=== PATIENT | male | born 1935 | race Caucasian/White ===

== ENCOUNTER 2017-10-06 12:04 | Inpatient (IN) | payer MEDICARE, MEDICAID ==
[~2017-10-06] VITALS: Ht 177.8 cm; Wt 93.8 kg
[2017-10-06] MEDS ORDERED: SODIUM CHLORIDE FLUSH 10ML SYR IVF ONE (13:30)
[2017-10-06 14:04] LABS: BASOPHILS # (AUTO) 0.05 x10^3/uL (0-0.1); BASOPHILS % (AUTO) 0 % (0-1); EOSINOPHILS # (AUTO) 0.36 x10^3/uL (0-0.4); EOSINOPHILS % (AUTO) 3 % (1-7); LYMPHOCYTES # (AUTO) 3.43 x10^3/uL (1-3.4); LYMPHOCYTES % (AUTO) 25 % (22-44); MD NO; MEAN CORPUSCULAR HEMOGLOBIN 31.7 pg (27.5-34.5); MEAN CORPUSCULAR HGB CONC 33.6 g/dL (33.2-36.2); MEAN CORPUSCULAR VOLUME 94.4 fL (81-97); MEAN PLATELET VOLUME 8.2 fL (7.4-10.4); MONOCYTES # (AUTO) 1.14 x10^3/uL (0.2-0.8); MONOCYTES % (AUTO) 9 % (2-9); NEUTROPHILS # (AUTO) 8.53 x10^3/uL (1.8-6.8); NEUTROPHILS % (AUTO) 63 % (42-75); PLATELET COUNT 240 x10^3/uL (130-400); RED BLOOD COUNT 5.14 x10^6/uL (4.38-5.82); RED CELL DISTRIBUTION WIDTH 13.7 % (9.4-14.8)
[2017-10-06 14:15] LABS: ALANINE AMINOTRANSFERASE 29 U/L (12-78); ALBUMIN 3.7 g/dL (3.4-5.0); ANION GAP 7 mmol/L (5-15); CALCIUM 9.3 mg/dL (8.5-10.1); CHLORIDE 114 mmol/L (98-107); CREATININE 1.97 mg/dL (0.7-1.3)
[2017-10-06 14:20] LABS: ALKALINE PHOSPHATASE 79 U/L (45-117); BILIRUBIN,TOTAL 0.4 mg/dL (0.2-1.0); TOTAL PROTEIN 7.7 g/dL (6.4-8.2)
[2017-10-06] MEDS ORDERED: ASPIRIN 81 MG TABLET CHEW ONE (14:34)
[2017-10-06] MEDS ORDERED: HEPARIN 5,000 UNITS/ML, 1ML ONE (14:35)
[2017-10-06] MEDS ORDERED: HEPARIN 25,000 UNITS/500ML PMX 500 ML ONE (14:35)
[2017-10-06] MEDS ORDERED: NITROGLYCERIN SINGLE TAB 0.4 MG SL ONE (14:37)
[2017-10-06] MEDS ORDERED: HEPARIN 5,000 UNITS/ML, 1ML IV ONE (15:00)
[2017-10-06] MEDS ORDERED: ASPIRIN 81 MG TABLET CHEW PO ONE (15:00)
[2017-10-06] MEDS ORDERED: HEPARIN 25,000 UNITS/500ML PMX 500 ML IV PRN (15:00)
[2017-10-06] MEDS ORDERED: HEPARIN 5,000 UNITS/ML, 1ML IV PRN (15:00)
[2017-10-06] MEDS ORDERED: FENTANYL PF 100 MCG/2ML ONE ×2 (15:17→16:07)
[2017-10-06] MEDS ORDERED: VERAPAMIL 2.5 MG/ML, 2ML ONE (15:18)
[2017-10-06] MEDS ORDERED: MIDAZOLAM 1 MG/ML, 2ML ONE ×2 (15:18→16:02)
[2017-10-06] MEDS ORDERED: BIVALIRUDIN 250 MG ONE ×2 (15:18→16:43)
[2017-10-06] MEDS ORDERED: HEPARIN 1,000 UNITS/ML, 10ML ONE (15:18)
[2017-10-06] MEDS ORDERED: LIDOCAINE 2%, 20ML ONE (15:18)
[2017-10-06] MEDS ORDERED: PRASUGREL 10 MG TABLET ONE (15:22)
[2017-10-06] MEDS ORDERED: LISI-170 PO (15:24)
[2017-10-06] MEDS ORDERED: FOLI1TAB5 PO (15:24)
[2017-10-06] MEDS ORDERED: ASPI-515 PO (15:24)
[2017-10-06] MEDS ORDERED: LABETALOL 5MG/ML, 20ML ONE (15:52)
[2017-10-06] MEDS ORDERED: ONDANSETRON 2MG/ML, 2ML IVPush PRN (16:00)
[2017-10-06] MEDS ORDERED: BISACODYL 10 MG SUPP PR PRN (16:00)
[2017-10-06] MEDS ORDERED: morphine SULFATE 10 MG/ML, 1ML IVPush PRN (16:00)
[2017-10-06] MEDS ORDERED: ACETAMINOPHEN 325 MG TABLET PO PRN (16:00)
[2017-10-06] MEDS ORDERED: NITROGLYCERIN 0.4 MG/SPRAY SL PRN (16:00)
[2017-10-06] MEDS ORDERED: HYDROcodone/APAP 5/325 TABLET PO PRN (16:00)
[2017-10-06] MEDS ORDERED: NITROGLYCERIN 0.4 MG BOTTLE (25 TABS) SL PRN (16:00)
[2017-10-06 16:17] LABS: INTERNATIONAL NORMALIZED RATIO 1.02 (0.93-1.1); PROTHROMBIN TIME 10.6 Seconds (9.6-11.5)
[2017-10-06] MEDS ORDERED: TICAGRELOR 90 MG TABLET ONE (16:18)
[2017-10-06] MEDS ORDERED: SODIUM CHLORIDE 0.9% 1,000 ML IV SCH (16:20)
[2017-10-06] MEDS ORDERED: BIVALIRUDIN 250 MG in DEXTROSE 5% 50 ML IV SCH (16:20)
[2017-10-06] MEDS ORDERED: LABETALOL 5MG/ML, 20ML IVPush PRN (16:30)
[2017-10-06 16:51] VITALS: BP 94/53
[2017-10-06] MEDS ORDERED: ASPIRIN 300 MG SUPP PR ONE (17:00)
[2017-10-06] MEDS ORDERED: ASPIRIN 81 MG TABLET EC PO ONE (18:00)
[2017-10-06] MEDS: METOPROLOL TARTRATE 25 MG TABLET PO SCH (18:24)
[2017-10-06 18:58] LABS: CHOL/HDL RATIO 3.7; LDL/HDL RATIO 2.3 (0.5-3.0)
[2017-10-06] MEDS: TICAGRELOR 90 MG TABLET PO SCH (20:20)
[2017-10-06] MEDS: ATORVASTATIN 80 MG TABLET PO SCH (20:20)
[2017-10-07 04:00] VITALS: BP 129/60
[2017-10-07 04:26] LABS: ALBUMIN 2.9 g/dL (3.4-5.0); ANION GAP 7 mmol/L (5-15); CALCIUM 8.4 mg/dL (8.5-10.1); CHLORIDE 116 mmol/L (98-107); CREATININE 1.88 mg/dL (0.7-1.3)
[2017-10-07] MEDS ORDERED: ALBUTEROL/IPRATROPIUM 2.5MG/0.5MG, 3 ML ONE (06:30)
[2017-10-07] MEDS: METOPROLOL TARTRATE 25 MG TABLET PO SCH ×3 (06:32→17:12)
[2017-10-07] MEDS: TICAGRELOR 90 MG TABLET PO SCH ×2 (08:44→21:15)
[2017-10-07 20:01] VITALS: BP 152/78
[2017-10-07] MEDS: ATORVASTATIN 80 MG TABLET PO SCH (21:15)
[2017-10-08] MEDS: ZOLPIDEM 5MG TABLET PO PRN ×2 (02:04→19:49)
[2017-10-08 02:07] VITALS: BP 193/71
[2017-10-08 07:17] LABS: BASOPHILS # (AUTO) 0.04 x10^3/uL (0-0.1); BASOPHILS % (AUTO) 0 % (0-1); EOSINOPHILS # (AUTO) 0.34 x10^3/uL (0-0.4); EOSINOPHILS % (AUTO) 3 % (1-7); LYMPHOCYTES # (AUTO) 1.93 x10^3/uL (1-3.4); LYMPHOCYTES % (AUTO) 18 % (22-44); MD NO; MEAN CORPUSCULAR HEMOGLOBIN 31.9 pg (27.5-34.5); MEAN CORPUSCULAR HGB CONC 33.8 g/dL (33.2-36.2); MEAN CORPUSCULAR VOLUME 94.5 fL (81-97); MEAN PLATELET VOLUME 8.1 fL (7.4-10.4); MONOCYTES # (AUTO) 1.04 x10^3/uL (0.2-0.8); MONOCYTES % (AUTO) 10 % (2-9); NEUTROPHILS # (AUTO) 7.32 x10^3/uL (1.8-6.8); NEUTROPHILS % (AUTO) 69 % (42-75); PLATELET COUNT 195 x10^3/uL (130-400); RED BLOOD COUNT 4.31 x10^6/uL (4.38-5.82); RED CELL DISTRIBUTION WIDTH 13.6 % (9.4-14.8)
[2017-10-08 07:28] LABS: ANION GAP 8 mmol/L (5-15); CALCIUM 9.1 mg/dL (8.5-10.1); CHLORIDE 113 mmol/L (98-107)
[2017-10-08 07:29] LABS: CREATININE 1.74 mg/dL (0.7-1.3)
[2017-10-08 07:46] VITALS: BP 168/63
[2017-10-08] MEDS: TICAGRELOR 90 MG TABLET PO SCH ×2 (09:39→19:49)
[2017-10-08] MEDS: METOPROLOL TARTRATE 25 MG TABLET PO SCH ×2 (09:40→18:01)
[2017-10-08 09:42] VITALS: BP 150/79
[2017-10-08] MEDS: ASPIRIN 325 MG TABLET PO SCH (10:51)
[2017-10-08] MEDS: LISINOPRIL 5 MG TABLET PO SCH (10:51)
[2017-10-08 14:19] VITALS: BP 168/71
[2017-10-08] MEDS: ATORVASTATIN 80 MG TABLET PO SCH (19:49)
[2017-10-08 19:50] VITALS: BP 155/82
[2017-10-09] MEDS ORDERED: HYDROcodone/APAP 5/325 TABLET PO PRN (02:30)
[2017-10-09 04:06] VITALS: BP 140/73
[2017-10-09] MEDS: METOPROLOL TARTRATE 25 MG TABLET PO SCH (05:26)
[2017-10-09] MEDS: ASPIRIN 325 MG TABLET PO SCH (05:26)
[2017-10-09 06:05] LABS: ANION GAP 10 mmol/L (5-15); CALCIUM 8.8 mg/dL (8.5-10.1); CHLORIDE 113 mmol/L (98-107); CREATININE 1.99 mg/dL (0.7-1.3)
[2017-10-09] MEDS ORDERED: ATOR-2 PO (08:04)
[2017-10-09] MEDS ORDERED: TICA90TA PO (08:04)
[2017-10-09] MEDS ORDERED: NITR0.4T SL (08:04)
[2017-10-09] MEDS ORDERED: METO25TA35 PO (08:04)
[2017-10-09 08:06] VITALS: BP 181/76
[2017-10-09] MEDS: TICAGRELOR 90 MG TABLET PO SCH (08:45)
[2017-10-09] MEDS: LISINOPRIL 5 MG TABLET PO SCH (08:45)
== END 2017-10-09 09:00 | disposition home or self-care (01) | DRG 248 ==
LOC: ED 16:31 → CCU 16:40 → 5SO 10-07 13:00
PROVIDERS: ADMIT Family Medicine; ATTEND Family Medicine
PROC: 02723FZ Dilation of Coronary Artery, Three Arteries with Three Intraluminal Devices, Percutaneous Approach (ICD-10-PCS; principal; 2017-10-06)
PROC: 4A023N7 Measurement of Cardiac Sampling and Pressure, Left Heart, Percutaneous Approach (ICD-10-PCS; 2017-10-06)
PROC: B2111ZZ Fluoroscopy of Multiple Coronary Arteries using Low Osmolar Contrast (ICD-10-PCS; 2017-10-06)
PROC: B2151ZZ Fluoroscopy of Left Heart using Low Osmolar Contrast (ICD-10-PCS; 2017-10-06)
DX: I21.09 ST elevation (STEMI) myocardial infarction involving other coronary artery of anterior wall (principal); N17.0 Acute kidney failure with tubular necrosis; D64.9 Anemia, unspecified; E78.5 Hyperlipidemia, unspecified; F17.210 Nicotine dependence, cigarettes, uncomplicated; I10 Essential (primary) hypertension; I25.10 Atherosclerotic heart disease of native coronary artery without angina pectoris; N28.9 Disorder of kidney and ureter, unspecified; Z91.19 Patient's noncompliance with other medical treatment and regimen
CPT/HCPCS: 36415; 71045; 80048; 80053; 80061; 82040; 84484; 85014; 85018; 85025; 85520; 85610; 87081; 92928; 93005; 93306; 93458; 96365; 96376; 99156; 99157; C1769; C1876; C1894; J0583; J1644; J2250; J3010; J3490; C1725; C1887; J2270; J7030; Q9967

== ENCOUNTER → 2017-11-06 | Outpatient (CLI) | payer MEDICARE, MEDICAID ==
[~2017-11-06] MED LIST: ASPI-515 PO; ATOR-2 PO; FOLI1TAB5 PO; LISI-170 PO; METO25TA35 PO; NITR0.4T SL; TICA90TA PO
[2017-11-06 12:51] LABS: ALBUMIN 3.5 g/dL (3.4-5.0); ANION GAP 7 mmol/L (5-15); CALCIUM 9.5 mg/dL (8.5-10.1); CHLORIDE 113 mmol/L (98-107)
[2017-11-06 12:55] LABS: ALANINE AMINOTRANSFERASE 37 U/L (12-78); ALKALINE PHOSPHATASE 87 U/L (45-117); BILIRUBIN,TOTAL 0.4 mg/dL (0.2-1.0); CHOLESTEROL, TOTAL 87 mg/dL (140-239); CREATININE 2.01 mg/dL (0.7-1.3); HDL CHOL % 51 % (26-37); HDL CHOLESTEROL (DIRECT) 44 mg/dL (40-60); LDL CHOLESTEROL,CALCULATED 23 mg/dL (54-169); LDL/HDL RATIO 0.5 (0.5-3.0); TRIGLYCERIDES 98 mg/dL (50-200); VLDL CHOLESTEROL 20 mg/dL (0-25)
== END | disposition home or self-care (01) ==
LOC: CFH 09:22
PROVIDERS: ATTEND Internal Medicine Cardiovascular Disease
DX: E78.2 Mixed hyperlipidemia (principal); N18.9 Chronic kidney disease, unspecified
CPT/HCPCS: 36415; 80053; 80061

== ENCOUNTER → 2018-02-25 | Outpatient (CLI) | payer MEDICARE, MEDICAID ==
[~2018-02-25] MED LIST changes: +REGADENOSON 0.4 MG/5 ML SYRINGE ONE
== END | disposition home or self-care (01) ==
LOC: CFH 11:56
PROVIDERS: ATTEND Internal Medicine Cardiovascular Disease
DX: I25.89 Other forms of chronic ischemic heart disease (principal); I25.10 Atherosclerotic heart disease of native coronary artery without angina pectoris
CPT/HCPCS: 78452; 93017; A9502; J2785

== ENCOUNTER 2018-03-11 10:21 | Observation (INO) | payer MEDICARE, MEDICAID ==
[2018-03-10 14:20] LABS: BASOPHILS # (AUTO) 0.05 x10^3/uL (0-0.1); BASOPHILS % (AUTO) 1 % (0-1); EOSINOPHILS # (AUTO) 0.57 x10^3/uL (0-0.4); EOSINOPHILS % (AUTO) 6 % (1-7); LYMPHOCYTES # (AUTO) 1.57 x10^3/uL (1-3.4); LYMPHOCYTES % (AUTO) 17 % (22-44); MD NO; MEAN CORPUSCULAR HEMOGLOBIN 32.1 pg (27.5-34.5); MEAN CORPUSCULAR HGB CONC 33.4 g/dL (33.2-36.2); MEAN CORPUSCULAR VOLUME 96.1 fL (81-97); MONOCYTES # (AUTO) 0.75 x10^3/uL (0.2-0.8); MONOCYTES % (AUTO) 8 % (2-9); NEUTROPHILS # (AUTO) 6.38 x10^3/uL (1.8-6.8); NEUTROPHILS % (AUTO) 69 % (42-75); PLATELET COUNT 244 x10^3/uL (130-400); RED BLOOD COUNT 3.28 x10^6/uL (4.38-5.82); RED CELL DISTRIBUTION WIDTH 14.8 % (9.4-14.8)
[2018-03-10 14:33] LABS: ANION GAP 6 mmol/L (5-15); CALCIUM 8.6 mg/dL (8.5-10.1); CHLORIDE 114 mmol/L (98-107); CREATININE 1.69 mg/dL (0.7-1.3)
[~2018-03-11] VITALS: Ht 177.8 cm; Wt 85.4 kg
[~2018-03-11 10:21] MED LIST changes: +AMLO5TAB2 PO; +ATOR40TA PO; +LISI5TAB7 PO; +METO25TA91 PO; -REGADENOSON 0.4 MG/5 ML SYRINGE ONE
[2018-03-11] MEDS ORDERED: SODIUM BICARBONATE 8.4% 50 MEQ in DEXTROSE 5% 1,000 ML IV SCH (12:00)
[2018-03-11] MEDS ORDERED: MIDAZOLAM 1 MG/ML, 2ML ONE (13:11)
[2018-03-11] MEDS ORDERED: BIVALIRUDIN 250 MG ONE (13:12)
[2018-03-11] MEDS ORDERED: LIDOCAINE 2%, 2ML ONE (13:12)
[2018-03-11] MEDS ORDERED: DIPHENHYDRAMINE 50 MG/ML, 1ML ONE (13:12)
[2018-03-11] MEDS ORDERED: HEPARIN 1,000 UNITS/ML, 10ML ONE (13:12)
[2018-03-11] MEDS ORDERED: FENTANYL PF 100 MCG/2ML ONE (13:12)
[2018-03-11] MEDS ORDERED: VERAPAMIL 2.5 MG/ML, 2ML ONE (13:26)
[2018-03-11] MEDS ORDERED: LABETALOL 5MG/ML, 20ML ONE (13:48)
[2018-03-11] MEDS ORDERED: BIVALIRUDIN 250 MG in DEXTROSE 5% 50 ML IV SCH (14:21)
[2018-03-11] MEDS ORDERED: ASPIRIN 325 MG TABLET EC ONE (14:22)
[2018-03-11] MEDS ORDERED: ONDANSETRON 2MG/ML, 2ML IVPush PRN (14:30)
[2018-03-11] MEDS ORDERED: ZOLPIDEM 5MG TABLET PO PRN (14:30)
[2018-03-11] MEDS ORDERED: LABETALOL 5MG/ML, 20ML IVPush PRN (14:30)
[2018-03-11] MEDS ORDERED: ACETAMINOPHEN 325 MG TABLET PO PRN (14:30)
[2018-03-11 17:16] VITALS: BP 138/83
[2018-03-11] MEDS: SODIUM CHLORIDE 0.9% 1,000 ML IV SCH ×2 (18:02→22:21)
[2018-03-11 20:00] VITALS: BP 102/58
[2018-03-11] MEDS: TICAGRELOR 90 MG TABLET PO SCH (20:38)
[2018-03-12 02:00] VITALS: BP 137/72
[2018-03-12 05:36] LABS: ANION GAP 10 mmol/L (5-15); CALCIUM 8.5 mg/dL (8.5-10.1); CHLORIDE 115 mmol/L (98-107); CREATININE 1.94 mg/dL (0.7-1.3)
[2018-03-12 05:38] LABS: BASOPHILS # (AUTO) 0.05 x10^3/uL (0-0.1); BASOPHILS % (AUTO) 1 % (0-1); EOSINOPHILS # (AUTO) 0.57 x10^3/uL (0-0.4); EOSINOPHILS % (AUTO) 6 % (1-7); LYMPHOCYTES # (AUTO) 1.85 x10^3/uL (1-3.4); LYMPHOCYTES % (AUTO) 18 % (22-44); MD NO; MEAN CORPUSCULAR HGB CONC 33.1 g/dL (33.2-36.2); MEAN CORPUSCULAR VOLUME 96.6 fL (81-97); MEAN PLATELET VOLUME 8.2 fL (7.4-10.4); MONOCYTES # (AUTO) 0.95 x10^3/uL (0.2-0.8); MONOCYTES % (AUTO) 10 % (2-9); NEUTROPHILS # (AUTO) 6.61 x10^3/uL (1.8-6.8); NEUTROPHILS % (AUTO) 66 % (42-75); PLATELET COUNT 221 x10^3/uL (130-400); RED CELL DISTRIBUTION WIDTH 14.8 % (9.4-14.8)
[2018-03-12] MEDS: SODIUM CHLORIDE 0.9% 1,000 ML IV SCH (06:21)
[2018-03-12 07:10] VITALS: BP 152/65
[2018-03-12] MEDS: TICAGRELOR 90 MG TABLET PO SCH (08:48)
[2018-03-12] MEDS ORDERED: AMLODIPINE 5 MG TABLET PO ONE (10:00)
[2018-03-12] MEDS ORDERED: METOPROLOL TARTRATE 25 MG TABLET PO SCH (10:00)
[2018-03-12] MEDS ORDERED: ASPIRIN 81 MG TABLET EC PO SCH (10:00)
[2018-03-12] MEDS ORDERED: LISINOPRIL 5 MG TABLET PO SCH (10:00)
== END 2018-03-12 11:37 | disposition home or self-care (01) ==
LOC: CACL 10:21 → ORIP 14:21 → 5SO 16:13
PROVIDERS: ADMIT Internal Medicine Cardiovascular Disease; ATTEND Internal Medicine Cardiovascular Disease
DX: I25.110 Atherosclerotic heart disease of native coronary artery with unstable angina pectoris (principal); I12.9 Hypertensive chronic kidney disease with stage 1 through stage 4 chronic kidney disease, or unspecified chronic kidney disease; N18.9 Chronic kidney disease, unspecified; E78.2 Mixed hyperlipidemia; F17.210 Nicotine dependence, cigarettes, uncomplicated
CPT/HCPCS: 36415; 71046; 80048; 82040; 85025; 92921; 92928; 93005; 93458; 99156; 99157; C1725; C1769; C1876; C1887; C1894; G0378; J0583; J1200; J1644; J2250; J3010; J3490; Q9967

== ENCOUNTER → 2018-06-29 | Outpatient (CLI) | payer MEDICARE, MEDICAID ==
[~2018-06-29] MED LIST changes: -AMLO5TAB2 PO; +AMLO5TAB7 PO
[2018-06-29 12:09] LABS: CHLORIDE 112 mmol/L (98-107)
[2018-06-29 12:14] LABS: ALANINE AMINOTRANSFERASE 31 U/L (12-78); ALBUMIN 3.8 g/dL (3.4-5.0); ALKALINE PHOSPHATASE 69 U/L (45-117); ANION GAP 11 mmol/L (5-15); BILIRUBIN,TOTAL 0.3 mg/dL (0.2-1.0); CALCIUM 8.9 mg/dL (8.5-10.1); CHOL/HDL RATIO 1.9; CHOLESTEROL, TOTAL 110 mg/dL (140-239); CREATININE 2.15 mg/dL (0.7-1.3); HDL CHOL % 53 % (26-37); HDL CHOLESTEROL (DIRECT) 58 mg/dL (40-60); LDL CHOLESTEROL,CALCULATED 37 mg/dL (54-169); LDL/HDL RATIO 0.6 (0.5-3.0); TOTAL PROTEIN 7.4 g/dL (6.4-8.2); TRIGLYCERIDES 73 mg/dL (50-200); VLDL CHOLESTEROL 15 mg/dL (0-25)
== END | disposition home or self-care (01) ==
LOC: CVU 10:55
PROVIDERS: ATTEND Internal Medicine Cardiovascular Disease
DX: I65.23 Occlusion and stenosis of bilateral carotid arteries (principal); I10 Essential (primary) hypertension; I21.9 Acute myocardial infarction, unspecified; E78.5 Hyperlipidemia, unspecified; F17.200 Nicotine dependence, unspecified, uncomplicated
CPT/HCPCS: 36415; 80053; 80061; 93880

== ENCOUNTER 2018-07-21 12:27 | Inpatient (IN) | payer MEDICARE, MEDICAID ==
[~2018-07-21] VITALS: Ht 177.8 cm; Wt 84.5 kg
[2018-07-21 13:24] LABS: BASOPHILS # (AUTO) 0.05 x10^3/uL (0-0.1); BASOPHILS % (AUTO) 1 % (0-1); EOSINOPHILS # (AUTO) 0.26 x10^3/uL (0-0.4); EOSINOPHILS % (AUTO) 3 % (1-7); LYMPHOCYTES # (AUTO) 1.14 x10^3/uL (1-3.4); LYMPHOCYTES % (AUTO) 13 % (22-44); MD NO; MEAN CORPUSCULAR HEMOGLOBIN 31.7 pg (27.5-34.5); MEAN CORPUSCULAR HGB CONC 33.5 g/dL (33.2-36.2); MEAN CORPUSCULAR VOLUME 94.7 fL (81-97); MONOCYTES # (AUTO) 0.65 x10^3/uL (0.2-0.8); MONOCYTES % (AUTO) 7 % (2-9); NEUTROPHILS % (AUTO) 77 % (42-75); PLATELET COUNT 264 x10^3/uL (130-400); RED BLOOD COUNT 2.66 x10^6/uL (4.38-5.82); RED CELL DISTRIBUTION WIDTH 15.8 % (9.4-14.8)
[2018-07-21 13:41] LABS: ALBUMIN 3.5 g/dL (3.4-5.0); ANION GAP 10 mmol/L (5-15); CALCIUM 8.7 mg/dL (8.5-10.1); CHLORIDE 117 mmol/L (98-107)
[2018-07-21 13:47] LABS: CREATININE 2.62 mg/dL (0.7-1.3); TROPONIN I 0.015 ng/mL (0.000-0.045)
[2018-07-21 13:48] LABS: INTERNATIONAL NORMALIZED RATIO 1.14 (0.93-1.1); PROTHROMBIN TIME 11.7 Seconds (9.6-11.5)
[2018-07-21] MEDS: SODIUM CHLORIDE 0.9% 1,000 ML IV SCH (14:52)
[2018-07-21] MEDS ORDERED: hydrALAzine 20 MG/ML, 1ML IVPush PRN (15:00)
[2018-07-21] MEDS ORDERED: DOCUSATE 100 MG CAPSULE PO PRN (15:00)
[2018-07-21] MEDS ORDERED: POLYETHYLENE GLYCOL 17 GM PACKET PO PRN (15:00)
[2018-07-21] MEDS ORDERED: ONDANSETRON 2MG/ML, 2ML IVPush PRN (15:00)
[2018-07-21] MEDS ORDERED: BISACODYL 10 MG SUPP PR PRN (15:00)
[2018-07-21] MEDS ORDERED: ACETAMINOPHEN 325 MG TABLET PO PRN (15:00)
[2018-07-21 15:43] LABS: THYROID STIMULATING HORMONE 0.728 mIU/L (0.358-3.740)
[2018-07-21 15:55] LABS: FOLATE LEVEL > 20.0 ng/mL (3.1-17.5)
[2018-07-21 16:00] VITALS: BP 131/60
[2018-07-21 16:48] LABS: TROPONIN I 0.022 ng/mL (0.000-0.045)
[2018-07-21 18:42] LABS: MICROSCOPIC AUTO
[2018-07-21 18:45] LABS: CULTURE INDICATED? NO
[2018-07-21 19:33] VITALS: BP 111/53
[2018-07-21 20:14] VITALS: BP 112/67
[2018-07-21] MEDS: ATORVASTATIN 40 MG TABLET PO SCH (20:21)
[2018-07-21] MEDS: METOPROLOL SUCCINATE 25 MG TAB.ER.24H PO SCH (20:22)
[2018-07-21] MEDS: TICAGRELOR 90 MG TABLET PO SCH (20:22)
[2018-07-21 23:29] LABS: TROPONIN I 0.017 ng/mL (0.000-0.045)
[2018-07-22] MEDS: SODIUM CHLORIDE 0.9% 1,000 ML IV SCH (00:36)
[2018-07-22 02:00] VITALS: BP 128/62
[2018-07-22 05:16] LABS: BASOPHILS # (AUTO) 0.05 x10^3/uL (0-0.1); BASOPHILS % (AUTO) 1 % (0-1); EOSINOPHILS # (AUTO) 0.46 x10^3/uL (0-0.4); EOSINOPHILS % (AUTO) 6 % (1-7); LYMPHOCYTES # (AUTO) 1.72 x10^3/uL (1-3.4); LYMPHOCYTES % (AUTO) 22 % (22-44); MD NO; MEAN CORPUSCULAR HGB CONC 32.9 g/dL (33.2-36.2); MEAN CORPUSCULAR VOLUME 94.4 fL (81-97); MEAN PLATELET VOLUME 8.1 fL (7.4-10.4); MONOCYTES % (AUTO) 11 % (2-9); NEUTROPHILS # (AUTO) 4.81 x10^3/uL (1.8-6.8); NEUTROPHILS % (AUTO) 61 % (42-75); PLATELET COUNT 231 x10^3/uL (130-400); RED BLOOD COUNT 2.51 x10^6/uL (4.38-5.82); RED CELL DISTRIBUTION WIDTH 15.8 % (9.4-14.8)
[2018-07-22 05:28] LABS: ANION GAP 4 mmol/L (5-15); CALCIUM 8.3 mg/dL (8.5-10.1); CHLORIDE 119 mmol/L (98-107)
[2018-07-22 05:31] LABS: CHOL/HDL RATIO 1.9; CHOLESTEROL, TOTAL 89 mg/dL (140-239); CREATININE 2.24 mg/dL (0.7-1.3); HDL CHOL % 52 % (26-37); HDL CHOLESTEROL (DIRECT) 46 mg/dL (40-60); LDL CHOLESTEROL,CALCULATED 29 mg/dL (54-169); LDL/HDL RATIO 0.6 (0.5-3.0); TRIGLYCERIDES 72 mg/dL (50-200); VLDL CHOLESTEROL 14 mg/dL (0-25)
[2018-07-22 07:03] VITALS: BP 105/57
[2018-07-22] MEDS: METOPROLOL SUCCINATE 25 MG TAB.ER.24H PO SCH (09:00)
[2018-07-22] MEDS: AMLODIPINE 5 MG TABLET PO SCH (09:08)
[2018-07-22] MEDS: TICAGRELOR 90 MG TABLET PO SCH ×2 (09:08→20:04)
[2018-07-22] MEDS: MULTIVITAMINS/MINERALS TABLET PO SCH (09:08)
[2018-07-22] MEDS ORDERED: METO25TA35 PO (09:11)
[2018-07-22] MEDS ORDERED: LISI5TAB7 PO (09:14)
[2018-07-22 13:13] VITALS: BP 121/56
[2018-07-22 20:04] VITALS: BP 109/52
[2018-07-22] MEDS: ATORVASTATIN 40 MG TABLET PO SCH (20:04)
[2018-07-23 02:15] VITALS: BP 113/60
[2018-07-23 05:33] LABS: BASOPHILS # (AUTO) 0.05 x10^3/uL (0-0.1); BASOPHILS % (AUTO) 1 % (0-1); EOSINOPHILS # (AUTO) 0.53 x10^3/uL (0-0.4); EOSINOPHILS % (AUTO) 6 % (1-7); LYMPHOCYTES # (AUTO) 1.66 x10^3/uL (1-3.4); LYMPHOCYTES % (AUTO) 19 % (22-44); MD NO; MEAN CORPUSCULAR HEMOGLOBIN 31.6 pg (27.5-34.5); MEAN CORPUSCULAR HGB CONC 33.3 g/dL (33.2-36.2); MONOCYTES % (AUTO) 9 % (2-9); NEUTROPHILS # (AUTO) 5.65 x10^3/uL (1.8-6.8); NEUTROPHILS % (AUTO) 65 % (42-75); PLATELET COUNT 239 x10^3/uL (130-400); RED BLOOD COUNT 2.63 x10^6/uL (4.38-5.82); RED CELL DISTRIBUTION WIDTH 15.4 % (9.4-14.8)
[2018-07-23 05:39] LABS: ANION GAP 9 mmol/L (5-15); CALCIUM 8.9 mg/dL (8.5-10.1); CHLORIDE 119 mmol/L (98-107)
[2018-07-23 05:44] LABS: CREATININE 2.08 mg/dL (0.7-1.3)
[2018-07-23 05:45] LABS: TROPONIN I < 0.015 ng/mL (0.000-0.045)
[2018-07-23 07:12] VITALS: BP 116/64
[2018-07-23] MEDS ORDERED: REGADENOSON 0.4 MG/5 ML SYRINGE ONE (08:48)
[2018-07-23] MEDS: D5%-0.45% NACL 1,000 ML IV SCH (13:46)
[2018-07-23] MEDS ORDERED: SODIUM CHLORIDE 0.9% 1,000 ML IV ONE (14:20)
[2018-07-23 15:29] VITALS: BP 153/70
[2018-07-23] MEDS: MULTIVITAMINS/MINERALS TABLET PO SCH (15:31)
[2018-07-23] MEDS: AMLODIPINE 5 MG TABLET PO SCH (15:31)
[2018-07-23] MEDS: TICAGRELOR 90 MG TABLET PO SCH ×2 (15:31→20:02)
[2018-07-23] MEDS: METOPROLOL TARTRATE 25 MG TABLET PO SCH ×3 (15:32→21:00)
[2018-07-23] MEDS: ATORVASTATIN 40 MG TABLET PO SCH (20:02)
[2018-07-23 20:05] VITALS: BP 125/64
[2018-07-24 01:32] VITALS: BP 133/70
[2018-07-24] MEDS: D5%-0.45% NACL 1,000 ML IV SCH (02:21)
[2018-07-24 05:28] LABS: BASOPHILS # (AUTO) 0.05 x10^3/uL (0-0.1); BASOPHILS % (AUTO) 1 % (0-1); EOSINOPHILS # (AUTO) 0.49 x10^3/uL (0-0.4); EOSINOPHILS % (AUTO) 6 % (1-7); LYMPHOCYTES # (AUTO) 1.66 x10^3/uL (1-3.4); LYMPHOCYTES % (AUTO) 21 % (22-44); MD NO; MEAN CORPUSCULAR HGB CONC 32.9 g/dL (33.2-36.2); MEAN CORPUSCULAR VOLUME 94.3 fL (81-97); MEAN PLATELET VOLUME 7.9 fL (7.4-10.4); MONOCYTES # (AUTO) 0.79 x10^3/uL (0.2-0.8); MONOCYTES % (AUTO) 10 % (2-9); NEUTROPHILS # (AUTO) 5.11 x10^3/uL (1.8-6.8); NEUTROPHILS % (AUTO) 63 % (42-75); PLATELET COUNT 241 x10^3/uL (130-400); RED BLOOD COUNT 2.68 x10^6/uL (4.38-5.82); RED CELL DISTRIBUTION WIDTH 15.2 % (9.4-14.8)
[2018-07-24 05:42] LABS: CHLORIDE 116 mmol/L (98-107)
[2018-07-24 05:46] LABS: % IRON SATURATION 6 % (20-55); ANION GAP 9 mmol/L (5-15); CALCIUM 8.7 mg/dL (8.5-10.1); CREATININE 2.05 mg/dL (0.7-1.3); IRON LEVEL 23 mcg/dL (65-175); TOTAL IRON BINDING CAPACITY 365 mcg/dL (250-450)
[2018-07-24 07:30] VITALS: BP 127/71
[2018-07-24] MEDS: METOPROLOL TARTRATE 25 MG TABLET PO SCH ×2 (07:59→20:37)
[2018-07-24] MEDS: TICAGRELOR 90 MG TABLET PO SCH ×2 (08:00→20:36)
[2018-07-24] MEDS: MULTIVITAMINS/MINERALS TABLET PO SCH (08:01)
[2018-07-24] MEDS: AMLODIPINE 5 MG TABLET PO SCH (08:01)
[2018-07-24] MEDS ORDERED: FENTANYL PF 100 MCG/2ML ONE ×3 (09:01→10:28)
[2018-07-24] MEDS ORDERED: TICAGRELOR 90 MG TABLET ONE ×2 (09:02→10:28)
[2018-07-24] MEDS ORDERED: MIDAZOLAM 1 MG/ML, 5ML ONE ×3 (09:02→10:28)
[2018-07-24] MEDS ORDERED: VERAPAMIL 2.5 MG/ML, 2ML ONE ×3 (09:02→10:01)
[2018-07-24] MEDS ORDERED: LIDOCAINE/PF 1%, 30ML ONE (09:02)
[2018-07-24] MEDS ORDERED: HEPARIN 1,000 UNITS/ML, 10ML ONE (09:02)
[2018-07-24] MEDS ORDERED: SODIUM CHLORIDE 0.9% 1,000 ML IV SCH ×2 (10:09→11:22)
[2018-07-24] MEDS ORDERED: ASPIRIN 325 MG TABLET EC ONE (11:23)
[2018-07-24 15:19] VITALS: BP 124/55
[2018-07-24 19:30] VITALS: BP 130/67
[2018-07-24] MEDS: ATORVASTATIN 40 MG TABLET PO SCH (20:36)
[2018-07-25] MEDS: D5%-0.45% NACL 1,000 ML IV SCH (00:23)
[2018-07-25 01:01] VITALS: BP 126/67
[2018-07-25 05:51] LABS: ANION GAP 9 mmol/L (5-15); CHLORIDE 116 mmol/L (98-107)
[2018-07-25 05:52] LABS: CREATININE 1.92 mg/dL (0.7-1.3)
[2018-07-25 07:56] VITALS: BP 172/71
[2018-07-25] MEDS: TICAGRELOR 90 MG TABLET PO SCH ×2 (08:00→20:51)
[2018-07-25] MEDS: METOPROLOL TARTRATE 25 MG TABLET PO SCH ×2 (08:00→20:52)
[2018-07-25] MEDS: AMLODIPINE 5 MG TABLET PO SCH (08:00)
[2018-07-25] MEDS: MULTIVITAMINS/MINERALS TABLET PO SCH (08:01)
[2018-07-25] MEDS: ASPIRIN 81 MG TABLET EC PO SCH (08:01)
[2018-07-25 08:07] VITALS: BP 122/72
[2018-07-25 10:25] VITALS: BP 113/53
[2018-07-25 13:45] VITALS: BP 134/71
[2018-07-25 19:07] VITALS: BP 138/68
[2018-07-25] MEDS: ATORVASTATIN 40 MG TABLET PO SCH (20:51)
[2018-07-26 03:12] VITALS: BP 118/65
[2018-07-26 06:45] VITALS: BP 131/75
[2018-07-26 07:54] LABS: OCCULT BLOOD POSITIVE (NEGATIVE)
[2018-07-26] MEDS: IRON SUCROSE COMPLEX 100MG/5ML IV SCH (08:32)
[2018-07-26] MEDS: ASPIRIN 81 MG TABLET EC PO SCH (08:32)
[2018-07-26 08:33] LABS: BASOPHILS # (AUTO) 0.03 x10^3/uL (0-0.1); BASOPHILS % (AUTO) 0 % (0-1); EOSINOPHILS # (AUTO) 0.46 x10^3/uL (0-0.4); EOSINOPHILS % (AUTO) 6 % (1-7); LYMPHOCYTES # (AUTO) 1.45 x10^3/uL (1-3.4); LYMPHOCYTES % (AUTO) 18 % (22-44); MD NO; MEAN CORPUSCULAR HEMOGLOBIN 30.3 pg (27.5-34.5); MEAN CORPUSCULAR HGB CONC 32.6 g/dL (33.2-36.2); MEAN CORPUSCULAR VOLUME 92.8 fL (81-97); MEAN PLATELET VOLUME 7.9 fL (7.4-10.4); MONOCYTES # (AUTO) 0.78 x10^3/uL (0.2-0.8); MONOCYTES % (AUTO) 10 % (2-9); NEUTROPHILS % (AUTO) 67 % (42-75); PLATELET COUNT 250 x10^3/uL (130-400); RED BLOOD COUNT 2.85 x10^6/uL (4.38-5.82); RED CELL DISTRIBUTION WIDTH 15.1 % (9.4-14.8)
[2018-07-26] MEDS: MULTIVITAMINS/MINERALS TABLET PO SCH (08:33)
[2018-07-26] MEDS: AMLODIPINE 5 MG TABLET PO SCH (08:33)
[2018-07-26] MEDS: METOPROLOL TARTRATE 25 MG TABLET PO SCH ×2 (08:33→21:19)
[2018-07-26 08:46] LABS: ALANINE AMINOTRANSFERASE 26 U/L (12-78); ALBUMIN 3.2 g/dL (3.4-5.0); ANION GAP 11 mmol/L (5-15); CALCIUM 8.8 mg/dL (8.5-10.1); CHLORIDE 115 mmol/L (98-107)
[2018-07-26 08:55] LABS: ALKALINE PHOSPHATASE 70 U/L (45-117); BILIRUBIN,TOTAL 0.3 mg/dL (0.2-1.0); CREATININE 2.19 mg/dL (0.7-1.3); TOTAL PROTEIN 6.5 g/dL (6.4-8.2)
[2018-07-26] MEDS: TICAGRELOR 90 MG TABLET PO SCH ×2 (09:20→21:20)
[2018-07-26 13:15] VITALS: BP 97/60
[2018-07-26 16:00] VITALS: BP 94/57
[2018-07-26 19:23] VITALS: BP 149/64
[2018-07-26] MEDS: MOVIPREP POWDER 1 PREP KIT PO SCH (21:19)
[2018-07-26] MEDS: ATORVASTATIN 40 MG TABLET PO SCH (21:20)
[2018-07-27 00:43] VITALS: BP 131/68
[2018-07-27 01:32] LABS: OCCULT BLOOD NEGATIVE (NEGATIVE)
[2018-07-27] MEDS: MOVIPREP POWDER 1 PREP KIT PO SCH (04:02)
[2018-07-27 07:29] VITALS: BP 149/65
[2018-07-27] MEDS: IRON SUCROSE COMPLEX 100MG/5ML IV SCH (08:10)
[2018-07-27] MEDS ORDERED: FENTANYL PF 100 MCG/2ML ONE (08:22)
[2018-07-27] MEDS ORDERED: MIDAZOLAM 1 MG/ML, 5ML ONE (08:22)
[2018-07-27] MEDS: ASPIRIN 81 MG TABLET EC PO SCH (10:43)
[2018-07-27] MEDS: MULTIVITAMINS/MINERALS TABLET PO SCH (10:43)
[2018-07-27] MEDS: METOPROLOL TARTRATE 25 MG TABLET PO SCH ×2 (10:43→21:46)
[2018-07-27] MEDS: TICAGRELOR 90 MG TABLET PO SCH ×2 (10:44→21:46)
[2018-07-27] MEDS: AMLODIPINE 5 MG TABLET PO SCH (10:44)
[2018-07-27] MEDS: OMEPRAZOLE 20 MG CAPSULE.DR PO SCH ×2 (10:59→17:03)
[2018-07-27 14:20] VITALS: BP 112/60
[2018-07-27 20:16] VITALS: BP 118/65
[2018-07-27] MEDS: ATORVASTATIN 40 MG TABLET PO SCH (21:46)
[2018-07-27 23:41] VITALS: BP 124/85
[2018-07-28 02:13] VITALS: BP 130/57
[2018-07-28 07:20] VITALS: BP 138/57
[2018-07-28 08:15] LABS: BASOPHILS # (AUTO) 0.05 x10^3/uL (0-0.1); BASOPHILS % (AUTO) 1 % (0-1); EOSINOPHILS # (AUTO) 0.49 x10^3/uL (0-0.4); EOSINOPHILS % (AUTO) 6 % (1-7); LYMPHOCYTES # (AUTO) 1.57 x10^3/uL (1-3.4); LYMPHOCYTES % (AUTO) 20 % (22-44); MD NO; MEAN CORPUSCULAR HEMOGLOBIN 31.2 pg (27.5-34.5); MEAN CORPUSCULAR HGB CONC 33.7 g/dL (33.2-36.2); MEAN CORPUSCULAR VOLUME 92.5 fL (81-97); MONOCYTES # (AUTO) 0.69 x10^3/uL (0.2-0.8); MONOCYTES % (AUTO) 9 % (2-9); NEUTROPHILS # (AUTO) 5.17 x10^3/uL (1.8-6.8); NEUTROPHILS % (AUTO) 65 % (42-75); PLATELET COUNT 249 x10^3/uL (130-400); RED BLOOD COUNT 2.78 x10^6/uL (4.38-5.82)
[2018-07-28 08:24] LABS: ANION GAP 10 mmol/L (5-15); CHLORIDE 116 mmol/L (98-107); CREATININE 2.42 mg/dL (0.7-1.3)
[2018-07-28] MEDS: IRON SUCROSE COMPLEX 100MG/5ML IV SCH (08:24)
[2018-07-28] MEDS: ASPIRIN 81 MG TABLET EC PO SCH (08:25)
[2018-07-28] MEDS: OMEPRAZOLE 20 MG CAPSULE.DR PO SCH (08:25)
[2018-07-28] MEDS: METOPROLOL TARTRATE 25 MG TABLET PO SCH (08:25)
[2018-07-28] MEDS: MULTIVITAMINS/MINERALS TABLET PO SCH (08:25)
[2018-07-28] MEDS: TICAGRELOR 90 MG TABLET PO SCH (08:25)
[2018-07-28] MEDS: AMLODIPINE 5 MG TABLET PO SCH (08:25)
[2018-07-28] MEDS ORDERED: OMEP-110 PO (08:50)
[2018-07-28] MEDS ORDERED: FERR324T5 PO (08:50)
[2018-07-28] MEDS ORDERED: HYDR-3341 PO (08:50)
[2018-07-28] MEDS ORDERED: METO25TA35 PO (10:57)
[2018-08-12] MEDS ORDERED: ISOS30TA8 PO (11:33)
[2018-08-15] MEDS ORDERED: SUCR1ORA5 PO (11:25)
== END 2018-07-28 10:55 | disposition home health service (06) | DRG 250 ==
LOC: ED 13:01 → EDIP 14:40 → 4EST 15:53 → 5SO 07-24 11:44 → DCLOUNGE 07-28 10:28
PROVIDERS: ADMIT Internal Medicine; ATTEND Internal Medicine
PROC: 02713Z6 Dilation of Coronary Artery, Two Arteries, Bifurcation, Percutaneous Approach (ICD-10-PCS; principal; 2018-07-23)
PROC: 4A023N7 Measurement of Cardiac Sampling and Pressure, Left Heart, Percutaneous Approach (ICD-10-PCS; 2018-07-23)
PROC: B211YZZ Fluoroscopy of Multiple Coronary Arteries using Other Contrast (ICD-10-PCS; 2018-07-23)
PROC: B215YZZ Fluoroscopy of Left Heart using Other Contrast (ICD-10-PCS; 2018-07-23)
PROC: 0DJD8ZZ Inspection of Lower Intestinal Tract, Via Natural or Artificial Opening Endoscopic (ICD-10-PCS; 2018-07-27)
PROC: 0W3P8ZZ Control Bleeding in Gastrointestinal Tract, Via Natural or Artificial Opening Endoscopic (ICD-10-PCS; 2018-07-27)
DX: T82.855A Stenosis of coronary artery stent, initial encounter (principal); N17.0 Acute kidney failure with tubular necrosis; K92.1 Melena; E87.2 Acidosis; D12.4 Benign neoplasm of descending colon; D50.0 Iron deficiency anemia secondary to blood loss (chronic); E78.5 Hyperlipidemia, unspecified; F17.200 Nicotine dependence, unspecified, uncomplicated; K31.819 Angiodysplasia of stomach and duodenum without bleeding; I13.10 Hypertensive heart and chronic kidney disease without heart failure, with stage 1 through stage 4 chronic kidney disease, or unspecified chronic kidney disease; I25.119 Atherosclerotic heart disease of native coronary artery with unspecified angina pectoris; I25.2 Old myocardial infarction; I25.82 Chronic total occlusion of coronary artery; I27.20 Pulmonary hypertension, unspecified; I65.02 Occlusion and stenosis of left vertebral artery; I65.23 Occlusion and stenosis of bilateral carotid arteries; I73.9 Peripheral vascular disease, unspecified; J44.9 Chronic obstructive pulmonary disease, unspecified; K29.80 Duodenitis without bleeding; K57.90 Diverticulosis of intestine, part unspecified, without perforation or abscess without bleeding; K64.8 Other hemorrhoids; N18.9 Chronic kidney disease, unspecified; Y83.1 Surgical operation with implant of artificial internal device as the cause of abnormal reaction of the patient, or of later complication, without mention of misadventure at the time of the procedure; R73.9 Hyperglycemia, unspecified; Z79.01 Long term (current) use of anticoagulants; Z82.49 Family history of ischemic heart disease and other diseases of the circulatory system; Z95.5 Presence of coronary angioplasty implant and graft
CPT/HCPCS: 36415; 70450; 70551; 71045; 72050; 78452; 80048; 80053; 80061; 81001; 82040; 82272; 82436; 82570; 82607; 82728; 82746; 83540; 83550; 84133; 84300; 84443; 84484; 85014; 85018; 85025; 85610; 85730; 86677; 92920; 93005; 93017; 93306; 93458; 99152; 99153; 99156; 99157; 99285; C1760; C1769; C1894; G0378; J1644; J1756; J2250; J2785; J3010; J3490; 92928; A9502; C1725; C1887; C9898; J7030; Q9967

== ENCOUNTER → 2018-07-29 | Outpatient (CLI) | payer MEDICARE, MEDICAID ==
[~2018-07-29] MED LIST changes: +FERR324T5 PO; +HYDR-3341 PO; +OMEP-110 PO
[2018-07-29 11:50] LABS: ANION GAP 10 mmol/L (5-15); CALCIUM 8.8 mg/dL (8.5-10.1); CHLORIDE 117 mmol/L (98-107); CREATININE 3.07 mg/dL (0.7-1.3)
== END | disposition home or self-care (01) ==
LOC: LAB 11:25
PROVIDERS: ATTEND Internal Medicine Cardiovascular Disease
DX: E78.2 Mixed hyperlipidemia (principal); I10 Essential (primary) hypertension
CPT/HCPCS: 36415; 80048

== ENCOUNTER 2018-11-16 05:30 | Emergency (ER) | payer MEDICARE, MEDICAID ==
[~2018-11-16] VITALS: Ht 177.8 cm; Wt 85.4 kg
[~2018-11-16 05:30] MED LIST changes: +AMLO-150 PO; -AMLO5TAB7 PO; +ISOS30TA8 PO; +SUCR1ORA5 PO
[2018-11-16 06:44] VITALS: BP 157/84
== END 2018-11-16 06:46 | disposition home or self-care (01) ==
LOC: ED 06:32
DX: R05 Cough (principal); J02.9 Acute pharyngitis, unspecified; R06.00 Dyspnea, unspecified; R09.81 Nasal congestion; I11.0 Hypertensive heart disease with heart failure; I50.9 Heart failure, unspecified; E78.5 Hyperlipidemia, unspecified; I25.2 Old myocardial infarction; I25.10 Atherosclerotic heart disease of native coronary artery without angina pectoris; Z87.891 Personal history of nicotine dependence
CPT/HCPCS: 99283

== ENCOUNTER → 2018-11-20 | Outpatient (CLI) | payer MEDICARE, MEDICAID ==
[2018-11-20 09:40] LABS: ALANINE AMINOTRANSFERASE 25 U/L (12-78); ALBUMIN 3.3 g/dL (3.4-5.0); ANION GAP 10 mmol/L (5-15); CALCIUM 8.5 mg/dL (8.5-10.1); CHLORIDE 118 mmol/L (98-107); CREATININE 2.29 mg/dL (0.7-1.3)
[2018-11-20 09:42] LABS: ALKALINE PHOSPHATASE 77 U/L (45-117); BILIRUBIN,TOTAL 0.3 mg/dL (0.2-1.0); CHOLESTEROL, TOTAL 86 mg/dL (140-239); HDL CHOL % 51 % (26-37); HDL CHOLESTEROL (DIRECT) 44 mg/dL (40-60); LDL CHOLESTEROL,CALCULATED 27 mg/dL (54-169); LDL/HDL RATIO 0.6 (0.5-3.0); TOTAL PROTEIN 7.1 g/dL (6.4-8.2); TRIGLYCERIDES 77 mg/dL (50-200); VLDL CHOLESTEROL 15 mg/dL (0-25)
== END | disposition home or self-care (01) ==
LOC: LAB 09:19
PROVIDERS: ATTEND Internal Medicine Cardiovascular Disease
DX: I12.9 Hypertensive chronic kidney disease with stage 1 through stage 4 chronic kidney disease, or unspecified chronic kidney disease (principal); N18.9 Chronic kidney disease, unspecified; E78.2 Mixed hyperlipidemia
CPT/HCPCS: 36415; 80053; 80061

== ENCOUNTER 2019-11-05 10:07 | Outpatient (CLI) | payer MEDICARE, MEDICAID ==
[~2019-11-05 10:07] MED LIST changes: -NITR0.4T SL; +NITR0.4T41 SL
[2019-11-05 13:09] LABS: ALANINE AMINOTRANSFERASE 21 U/L (12-78); ALBUMIN 3.1 g/dL (3.4-5.0); ANION GAP 7 mmol/L (5-15); CALCIUM 8.6 mg/dL (8.5-10.1); CHLORIDE 120 mmol/L (98-107); CHOLESTEROL, TOTAL 116 mg/dL (140-239); CREATININE 2.35 mg/dL (0.7-1.3)
[2019-11-05 13:11] LABS: ALKALINE PHOSPHATASE 78 U/L (45-117); BILIRUBIN,TOTAL 0.3 mg/dL (0.2-1.0); CHOL/HDL RATIO 2.9; HDL CHOL % 34 % (26-37); HDL CHOLESTEROL (DIRECT) 40 mg/dL (40-60); LDL CHOLESTEROL,CALCULATED 58 mg/dL (54-169); LDL/HDL RATIO 1.5 (0.5-3.0); TOTAL PROTEIN 6.8 g/dL (6.4-8.2); TRIGLYCERIDES 92 mg/dL (50-200); VLDL CHOLESTEROL 18 mg/dL (0-25)
== END 2019-11-05 23:59 | disposition home or self-care (01) ==
LOC: CFH 10:07
PROVIDERS: ATTEND Internal Medicine Cardiovascular Disease
DX: E78.2 Mixed hyperlipidemia (principal); N18.9 Chronic kidney disease, unspecified
CPT/HCPCS: 36415; 80053; 80061

== ENCOUNTER → 2020-03-06 | Outpatient (CLI) | payer MEDICARE, MEDICAID ==
[2020-03-06 13:11] LABS: ALANINE AMINOTRANSFERASE 27 U/L (12-78); ALBUMIN 3.4 g/dL (3.4-5.0); ANION GAP 4 mmol/L (5-15); CALCIUM 8.6 mg/dL (8.5-10.1); CHLORIDE 117 mmol/L (98-107); CHOLESTEROL, TOTAL 130 mg/dL (140-239); CREATININE 2.56 mg/dL (0.7-1.3); TRIGLYCERIDES 93 mg/dL (50-200); VLDL CHOLESTEROL 19 mg/dL (0-25)
[2020-03-06 13:13] LABS: ALKALINE PHOSPHATASE 81 U/L (45-117); BILIRUBIN,TOTAL 0.3 mg/dL (0.2-1.0); CHOL/HDL RATIO 2.5; HDL CHOL % 40 % (26-37); HDL CHOLESTEROL (DIRECT) 52 mg/dL (40-60); LDL CHOLESTEROL,CALCULATED 59 mg/dL (54-169); LDL/HDL RATIO 1.1 (0.5-3.0); TOTAL PROTEIN 7.1 g/dL (6.4-8.2)
== END | disposition home or self-care (01) ==
LOC: CFH 10:16
PROVIDERS: ATTEND Internal Medicine Cardiovascular Disease
DX: E78.2 Mixed hyperlipidemia (principal); N18.9 Chronic kidney disease, unspecified
CPT/HCPCS: 36415; 80053; 80061

== ENCOUNTER → 2020-03-08 | Outpatient (CLI) | payer MEDICARE, MEDICAID ==
[~2020-03-08] MED LIST changes: +CLOP75TA52 PO; +HYDR-3342 PO; +MULT-717 PO
== END | disposition home or self-care (01) ==
LOC: CFH 14:03
PROVIDERS: ATTEND Internal Medicine
DX: E87.5 Hyperkalemia (principal)
CPT/HCPCS: 36415; 84132

== ENCOUNTER → 2020-03-21 | Outpatient (CLI) | payer MEDICARE, MEDICAID ==
[~2020-03-21] MED LIST changes: +HYDR-3343 PO
[2020-03-21 16:15] LABS: ANION GAP 5 mmol/L (5-15); CALCIUM 8.5 mg/dL (8.5-10.1); CHLORIDE 114 mmol/L (98-107)
[2020-03-21 16:16] LABS: CREATININE 2.63 mg/dL (0.7-1.3)
== END | disposition home or self-care (01) ==
LOC: CFH 12:26
PROVIDERS: ATTEND Nurse Practitioner Family
DX: I12.9 Hypertensive chronic kidney disease with stage 1 through stage 4 chronic kidney disease, or unspecified chronic kidney disease (principal); N18.9 Chronic kidney disease, unspecified
CPT/HCPCS: 36415; 80048

== ENCOUNTER → 2020-05-23 | Outpatient (CLI) | payer MEDICARE, MEDICAID ==
[2020-05-23 13:25] LABS: MICROSCOPIC AUTO
[2020-05-23 13:30] LABS: ALBUMIN 3.1 g/dL (3.4-5.0); ANION GAP 6 mmol/L (5-15); CALCIUM 8.7 mg/dL (8.5-10.1); CHLORIDE 120 mmol/L (98-107)
[2020-05-23 13:35] LABS: ALANINE AMINOTRANSFERASE 24 U/L (12-78); ALKALINE PHOSPHATASE 78 U/L (45-117); BILIRUBIN,TOTAL 0.3 mg/dL (0.2-1.0); CREATININE 2.53 mg/dL (0.7-1.3); TOTAL PROTEIN 6.4 g/dL (6.4-8.2)
[2020-05-23 13:39] LABS: BASOPHILS # (AUTO) 0.03 x10^3/uL (0-0.1); BASOPHILS % (AUTO) 0 % (0-1); EOSINOPHILS # (AUTO) 0.38 x10^3/uL (0-0.4); EOSINOPHILS % (AUTO) 5 % (1-7); LYMPHOCYTES # (AUTO) 1.72 x10^3/uL (1-3.4); LYMPHOCYTES % (AUTO) 21 % (22-44); MEAN CORPUSCULAR HEMOGLOBIN 32.5 pg (27.5-34.5); MEAN CORPUSCULAR HGB CONC 32.9 g/dL (33.2-36.2); MEAN CORPUSCULAR VOLUME 98.9 fL (81-97); MEAN PLATELET VOLUME 8.2 fL (7.4-10.4); MONOCYTES # (AUTO) 0.95 x10^3/uL (0.2-0.8); MONOCYTES % (AUTO) 12 % (2-9); NEUTROPHILS % (AUTO) 62 % (42-75); PLATELET COUNT 230 x10^3/uL (130-400); RED BLOOD COUNT 3.18 x10^6/uL (4.38-5.82); RED CELL DISTRIBUTION WIDTH 14.4 % (9.4-14.8)
[2020-05-23 13:42] LABS: MD NO
== END | disposition home or self-care (01) ==
LOC: CFH 10:45
PROVIDERS: ATTEND Internal Medicine Nephrology
DX: I12.9 Hypertensive chronic kidney disease with stage 1 through stage 4 chronic kidney disease, or unspecified chronic kidney disease (principal); N18.4 Chronic kidney disease, stage 4 (severe); I25.10 Atherosclerotic heart disease of native coronary artery without angina pectoris; R80.9 Proteinuria, unspecified
CPT/HCPCS: 36415; 80053; 81001; 82043; 82570; 84100; 84156; 85025

== ENCOUNTER → 2020-09-28 | Outpatient (CLI) | payer MEDICARE, MEDICAID | END | disposition home or self-care (01) | LOC: EDSTATUS 11:30 → RAD 12:00 → EDSTATUS 12:45 | PROVIDERS: ATTEND Internal Medicine | DX: I65.23 Occlusion and stenosis of bilateral carotid arteries (principal); I25.10 Atherosclerotic heart disease of native coronary artery without angina pectoris; I67.9 Cerebrovascular disease, unspecified | CPT/HCPCS: 93880 ==

== ENCOUNTER → 2020-11-22 | Outpatient (CLI) | payer MEDICARE, MEDICAID ==
[~2020-11-22] MED LIST changes: -ASPI-515 PO; +ASPI-963 PO
== END | disposition home or self-care (01) ==
LOC: CVU 06:59
PROVIDERS: ATTEND Internal Medicine Cardiovascular Disease
DX: I65.21 Occlusion and stenosis of right carotid artery (principal)
CPT/HCPCS: 93931

== ENCOUNTER 2020-11-29 06:00 | Day surgery (SDC) | payer MEDICARE, MEDICAID ==
[~2020-11-29] VITALS: Ht 177.8 cm; Wt 88.0 kg
[2020-11-29] MEDS ORDERED: SODIUM CHLORIDE 0.9% 1,000 ML IV SCH (07:30)
[2020-11-29 07:34] VITALS: BP 131/62
[2020-11-29 07:57] LABS: INTERNATIONAL NORMALIZED RATIO 1.1 (0.93-1.1); PROTHROMBIN TIME 11.8 Seconds (9.6-11.5)
[2020-11-29] MEDS ORDERED: MIDAZOLAM 1 MG/ML, 5ML ONE (08:16)
[2020-11-29] MEDS ORDERED: FENTANYL PF 100 MCG/2ML ONE (08:16)
[2020-11-29] MEDS ORDERED: FLUMAZENIL 0.1 MG/1 ML, 5ML ONE (08:16)
[2020-11-29] MEDS ORDERED: NALOXONE 1 MG/ML, 2ML ONE (08:16)
== END 2020-11-29 09:40 | disposition home or self-care (01) ==
LOC: RAD 06:00 → OUT 09:40
PROVIDERS: ATTEND Internal Medicine Nephrology
DX: I12.9 Hypertensive chronic kidney disease with stage 1 through stage 4 chronic kidney disease, or unspecified chronic kidney disease (principal); N18.4 Chronic kidney disease, stage 4 (severe); D63.1 Anemia in chronic kidney disease; E78.5 Hyperlipidemia, unspecified; I25.2 Old myocardial infarction; J43.9 Emphysema, unspecified; I25.10 Atherosclerotic heart disease of native coronary artery without angina pectoris; Z79.02 Long term (current) use of antithrombotics/antiplatelets; Z79.82 Long term (current) use of aspirin; Z79.899 Other long term (current) drug therapy; Z86.73 Personal history of transient ischemic attack (TIA), and cerebral infarction without residual deficits; Z87.891 Personal history of nicotine dependence; Z95.5 Presence of coronary angioplasty implant and graft
CPT/HCPCS: 36415; 50200; 77012; 85610; 88300; 99156; 99157; J2250; J3010; J7030; J2310

== ENCOUNTER → 2021-05-09 | Outpatient (CLI) | payer MEDICARE, MEDICAID | END | disposition home or self-care (01) | LOC: RAD 12:18 | PROVIDERS: ATTEND Internal Medicine Nephrology | DX: I12.9 Hypertensive chronic kidney disease with stage 1 through stage 4 chronic kidney disease, or unspecified chronic kidney disease (principal); I25.10 Atherosclerotic heart disease of native coronary artery without angina pectoris; N18.5 Chronic kidney disease, stage 5; E87.5 Hyperkalemia; N17.9 Acute kidney failure, unspecified; R80.9 Proteinuria, unspecified; M47.814 Spondylosis without myelopathy or radiculopathy, thoracic region | CPT/HCPCS: 71046 ==

== ENCOUNTER 2021-05-11 10:44 | Outpatient (CLI) | payer MEDICARE, MEDICAID | END 2021-05-11 23:59 | disposition home or self-care (01) | LOC: LAB 10:44 | PROVIDERS: ATTEND Internal Medicine Nephrology | DX: I12.9 Hypertensive chronic kidney disease with stage 1 through stage 4 chronic kidney disease, or unspecified chronic kidney disease (principal); N17.9 Acute kidney failure, unspecified; E87.5 Hyperkalemia; N18.5 Chronic kidney disease, stage 5; I25.10 Atherosclerotic heart disease of native coronary artery without angina pectoris; R80.9 Proteinuria, unspecified ==

== ENCOUNTER 2021-05-25 19:04 | Emergency (ER) | payer MEDICARE, MEDICAID ==
[~2021-05-25] VITALS: Ht 177.8 cm; Wt 83.0 kg
--- NOTE | 2021-05-25 19:18 | NUR ---
PT C/O OF SYNCOPE, NAUSEA, DRY HEAVING, HEAT INTOLERANCE, AND BACK PAIN PT REPORTS THIS HAS BEEN HAPPENING OVER LAST 10 DAYS AFTER DIALYSIS. +ORTHOSTASIS WITH [facility]. PT STATES HE WAS AT [facility] THIS AM FOR SYNCOPE EPISODE AND HITTING HEAD ON [place]. BUMP NOTED ON HEAD. [facility] DID CT TO RULE OUT HEAD BLEED. PT REPORTS AFTER HE WAS SENT HOME [facility] TO [facility]ITAL BEING FULL. PT REPORTS BEING ON BLOOD THINNERS ATTACHED TO CARD/SP02/BP MONITORS. EKG DONE IN ROOM. BED IN LOW POSITION, RAILS ENGAGED, CALL LIGHT ON LAP.
[2021-05-25] MEDS ORDERED: MORPHINE SULFATE 4 MG/ML, 1ML IVPush PRN (20:00)
[2021-05-25] MEDS ORDERED: MORPHINE SULFATE 4 MG/ML, 1ML ONE (20:05)
[2021-05-25] MEDS ORDERED: ONDANSETRON 2MG/ML, 2ML ONE (20:05)
--- NOTE | 2021-05-25 20:06 | NUR ---
PT OFF UNIT IN IMAGING.
[2021-05-25] MEDS ORDERED: ONDANSETRON 2MG/ML, 2ML IVPush ONE (20:30)
[2021-05-25 20:49] LABS: ALANINE AMINOTRANSFERASE 24 U/L (12-78); ALBUMIN 1.9 g/dL (3.4-5.0); ANION GAP 5 mmol/L (5-15); CHLORIDE 104 mmol/L (98-107)
[2021-05-25 20:50] LABS: BASOPHILS % (AUTO) 1 % (0-1); EOSINOPHILS % (AUTO) 2 % (1-7); LYMPHOCYTES % (AUTO) 19 % (22-44); MEAN CORPUSCULAR HEMOGLOBIN 32.2 pg (27.5-34.5); MEAN PLATELET VOLUME 7.9 fL (7.4-10.4); MONOCYTES % (AUTO) 13 % (2-9); NEUTROPHILS % (AUTO) 66 % (42-75); PLATELET COUNT 190 x10^3/uL (130-400); RED BLOOD COUNT 2.94 x10^6/uL (4.38-5.82); RED CELL DISTRIBUTION WIDTH 14.6 % (9.4-14.8)
--- NOTE | 2021-05-25 20:51 | NUR ---
Patient is resting comfortably in bed. Bed in lowest, rails engaged, call light on lap. Vital Signs within normal limits. WCTM.
[2021-05-25 20:53] LABS: ALKALINE PHOSPHATASE 77 U/L (45-117); BILIRUBIN,TOTAL 0.3 mg/dL (0.2-1.0); TOTAL PROTEIN 5.5 g/dL (6.4-8.2); TROPONIN I 0.026 ng/mL (0.000-0.045)
[2021-05-25] MEDS ORDERED: SODIUM CHLORIDE FLUSH 10ML SYR IVF ONE (21:00)
--- NOTE | 2021-05-25 21:22 | NUR ---
PT TAUGHT HOW TO USE IS
--- NOTE | 2021-05-25 21:22 | NUR ---
LATE ENTRY DUE TO PT CARE. PT REFUSED MORPHINE AND ZOFRAN. STATES HE JUST WANTED TO WAIT TELL HE GOT HOME TO TAKE PAIN MEDICATION.
[2021-05-25 21:57] VITALS: BP 158/64
--- NOTE | 2021-05-25 22:00 | NUR ---
Patient/Caregiver given discharge instructions and they have confirmed that they understand the instructions. Patient ambulatory with steady gait. NAD, all questions answered appropriately, denies additional needs at this time. No personal belongings left in room after discharge.
== END 2021-05-25 22:02 | disposition home or self-care (01) ==
LOC: ED 19:57
DX: S22.32XA Fracture of one rib, left side, initial encounter for closed fracture (principal); R55 Syncope and collapse; E11.22 Type 2 diabetes mellitus with diabetic chronic kidney disease; I13.2 Hypertensive heart and chronic kidney disease with heart failure and with stage 5 chronic kidney disease, or end stage renal disease; I50.9 Heart failure, unspecified; N18.6 End stage renal disease; Z99.2 Dependence on renal dialysis; E78.5 Hyperlipidemia, unspecified; I25.2 Old myocardial infarction; I25.10 Atherosclerotic heart disease of native coronary artery without angina pectoris; F17.200 Nicotine dependence, unspecified, uncomplicated; X58.XXXA Exposure to other specified factors, initial encounter; Y93.89 Activity, other specified; Y92.89 Other specified places as the place of occurrence of the external cause; Y99.8 Other external cause status
CPT/HCPCS: 36415; 80053; 83880; 84484; 85025; 93005; 99285

== ENCOUNTER 2021-05-29 07:35 | Emergency (ER) | payer MEDICARE, MEDICAID ==
[~2021-05-29] VITALS: Ht 177.8 cm; Wt 81.1 kg
--- NOTE | 2021-05-29 07:48 | NUR ---
PT AMBULATORY TO ROOM FROM TRIAGE, CHANGED INTO GOWN, ALL MONITORS IN PLACE. PT C/O OF CENTER CP, LEFT RIB PAIN, HURTS TO COUGH/SNEEZE. HURTS WORSE WHEN SITTING. FELL X4 IN LAST 10 DAYS. STATES GETS DIZZY WHEN FALLS. SEEN HERE FOR 4 DAYS AGO, DX [facility]. PT SUPPOSE TO BE AT DIALYSIS TODAY
--- NOTE | 2021-05-29 07:55 | NUR ---
erp at bs for eval
--- NOTE | 2021-05-29 08:11 | NUR ---
PIV PLACED, LABS DRAWN. PT SITTING ON SIDE OF DIANNE SPENCER. CALL LIGHT WITHIN REACH, BED IN LOWEST POSITION
[2021-05-29] MEDS ORDERED: ONDANSETRON 2MG/ML, 2ML ONE (08:15)
[2021-05-29] MEDS ORDERED: HYDROmorphone 2 MG/ML, 1ML ONE (08:15)
[2021-05-29 08:19] LABS: BASOPHILS % (AUTO) 1 % (0-1); EOSINOPHILS % (AUTO) 3 % (1-7); LYMPHOCYTES % (AUTO) 14 % (22-44); MEAN CORPUSCULAR HEMOGLOBIN 31.8 pg (27.5-34.5); MEAN PLATELET VOLUME 7.9 fL (7.4-10.4); MONOCYTES % (AUTO) 10 % (2-9); NEUTROPHILS % (AUTO) 74 % (42-75); PLATELET COUNT 259 x10^3/uL (130-400); RED BLOOD COUNT 3.23 x10^6/uL (4.38-5.82); RED CELL DISTRIBUTION WIDTH 14.7 % (9.4-14.8)
--- NOTE | 2021-05-29 08:26 | NUR ---
PT TO IMAGING
[2021-05-29 08:30] LABS: ALBUMIN 2.4 g/dL (3.4-5.0); ANION GAP 5 mmol/L (5-15); CALCIUM 8.6 mg/dL (8.5-10.1); CHLORIDE 107 mmol/L (98-107); CREATININE 5.69 mg/dL (0.7-1.3)
[2021-05-29] MEDS ORDERED: SODIUM CHLORIDE FLUSH 10ML SYR IVF ONE (08:30)
[2021-05-29] MEDS ORDERED: ONDANSETRON 2MG/ML, 2ML IVPush ONE (08:30)
[2021-05-29] MEDS ORDERED: HYDROmorphone 2 MG/ML, 1ML IV ONE (08:30)
--- NOTE | 2021-05-29 08:36 | NUR ---
PT BACK FROM IMAGING, CONNECTED TO MONITORS, CALL LIGHT WITHIN REACH
--- NOTE | 2021-05-29 09:19 | NUR ---
PT RESTING ON GURNEY, RESPIRATIONS EVEN AND UNLABORED. CALL LIGHT WITHIN REACH, BED IN LOWEST POSITION. NADN/VSS. WCTM
--- NOTE | 2021-05-29 09:33 | NUR ---
ERP AT FOR RECHECK
[2021-05-29 09:44] VITALS: BP 133/54
--- NOTE | 2021-05-29 10:01 | NUR ---
Patient given discharge instructions and they have confirmed that they understand the instructions. Patient ambulatory with steady gait.
== END 2021-05-29 10:02 | disposition home or self-care (01) ==
LOC: ED 08:34
DX: S22.32XA Fracture of one rib, left side, initial encounter for closed fracture (principal); K59.00 Constipation, unspecified; I10 Essential (primary) hypertension; E11.9 Type 2 diabetes mellitus without complications; X58.XXXA Exposure to other specified factors, initial encounter; Y93.89 Activity, other specified; Y92.89 Other specified places as the place of occurrence of the external cause; Y99.8 Other external cause status
CPT/HCPCS: 36415; 74022; 80048; 82040; 85025; 93005; 96374; 96375; 99285; J1170; J2405

== ENCOUNTER 2021-06-05 19:36 | Inpatient (IN) | payer MEDICARE, MEDICAID ==
[~2021-06-05] VITALS: Ht 177.8 cm; Wt 68.7 kg
[2021-06-05] MEDS ORDERED: OXYcodone/APAP 5/325MG TABLET PO ONE (20:00)
[2021-06-05] MEDS ORDERED: SODIUM CHLORIDE FLUSH 10ML SYR IVF ONE (20:00)
--- NOTE | 2021-06-05 20:03 | NUR ---
PT BIB EMS FOR DIZZINESS. PT STATES HE HAS PASSED OUT A FEW TIME OVER THE LAST MONTH. PT RECENTLY STARTED DIALYSIS. PT FELL LAST WEEK AND WAS BIB EMS AND D/C WITH [facility] ON LEFT SIDE AND D/C WITH PAIN MEDS. PT CONNECTED TO ALL MONITORS. EKG AND X-RAY DONE IN ROOM. MD BEDSIDE FOR ASSESSMENT. PT RESTING ON RNEY.
[2021-06-05] MEDS ORDERED: OXYcodone/APAP 5/325MG TABLET ONE (20:10)
--- NOTE | 2021-06-05 20:54 | NUR ---
PT SITTING UP ON GURNEY WATCHING TV, STATES HIS PAIN IS IMPROVED.
[2021-06-05 21:34] LABS: BASOPHILS % (AUTO) 1 % (0-1); EOSINOPHILS % (AUTO) 2 % (1-7); LYMPHOCYTES % (AUTO) 16 % (22-44); MEAN CORPUSCULAR HGB CONC 33.6 g/dL (33.2-36.2); MEAN PLATELET VOLUME 7.7 fL (7.4-10.4); MONOCYTES % (AUTO) 14 % (2-9); NEUTROPHILS % (AUTO) 68 % (42-75); PLATELET COUNT 216 x10^3/uL (130-400); RED BLOOD COUNT 2.93 x10^6/uL (4.38-5.82); RED CELL DISTRIBUTION WIDTH 14.1 % (9.4-14.8)
[2021-06-05 21:42] LABS: ALANINE AMINOTRANSFERASE 44 U/L (12-78); ANION GAP 5 mmol/L (5-15); CALCIUM 8.1 mg/dL (8.5-10.1); CHLORIDE 99 mmol/L (98-107); CREATININE 3.21 mg/dL (0.7-1.3)
[2021-06-05 21:47] LABS: ALKALINE PHOSPHATASE 74 U/L (45-117); BILIRUBIN,TOTAL 0.3 mg/dL (0.2-1.0); TOTAL PROTEIN 5.8 g/dL (6.4-8.2); TROPONIN I 0.018 ng/mL (0.000-0.045)
[2021-06-05] MEDS ORDERED: SODIUM CHLORIDE FLUSH 10ML SYR IVF PRN (22:30)
[2021-06-05] MEDS ORDERED: ONDANSETRON ODT 4 MG PO PRN (23:00)
[2021-06-05] MEDS ORDERED: POLYETHYLENE GLYCOL 17 GM PACKET PO PRN (23:00)
[2021-06-05] MEDS ORDERED: ACETAMINOPHEN 325 MG TABLET PO PRN (23:00)
[2021-06-05] MEDS ORDERED: BISACODYL 10 MG SUPP PR PRN (23:00)
[2021-06-05 23:44] VITALS: BP 152/71
[2021-06-06] MEDS: SODIUM CHLORIDE FLUSH 10ML SYR IVF SCH ×2 (00:43→09:00)
[2021-06-06 02:03] VITALS: BP 144/76
[2021-06-06 06:46] LABS: BASOPHILS % (AUTO) 1 % (0-1); EOSINOPHILS % (AUTO) 3 % (1-7); LYMPHOCYTES % (AUTO) 24 % (22-44); MEAN CORPUSCULAR HEMOGLOBIN 32.3 pg (27.5-34.5); MEAN CORPUSCULAR HGB CONC 33.8 g/dL (33.2-36.2); MEAN PLATELET VOLUME 7.9 fL (7.4-10.4); MONOCYTES % (AUTO) 17 % (2-9); NEUTROPHILS % (AUTO) 55 % (42-75); PLATELET COUNT 205 x10^3/uL (130-400); RED BLOOD COUNT 2.94 x10^6/uL (4.38-5.82); RED CELL DISTRIBUTION WIDTH 14.3 % (9.4-14.8)
[2021-06-06 06:49] LABS: ANION GAP 5 mmol/L (5-15); CALCIUM 8.1 mg/dL (8.5-10.1); CHLORIDE 102 mmol/L (98-107); CREATININE 3.96 mg/dL (0.7-1.3)
[2021-06-06 06:53] LABS: TROPONIN I 0.032 ng/mL (0.000-0.045)
[2021-06-06 08:20] VITALS: BP 150/57
[2021-06-06 08:25] VITALS: BP 115/65
[2021-06-06 08:30] VITALS: BP 124/64
[2021-06-06] MEDS ORDERED: MULTIVITAMINS/MINERALS TABLET PO SCH (09:00)
[2021-06-06] MEDS ORDERED: ASPIRIN 81 MG TABLET EC PO SCH (09:00)
[2021-06-06] MEDS ORDERED: AMLODIPINE 10 MG TAB PO SCH (09:00)
[2021-06-06] MEDS ORDERED: CLOPIDOGREL 75 MG TABLET PO SCH ×2 (09:00)
[2021-06-06] MEDS ORDERED: SENNA/DOCUSATE TABLET PO SCH (09:00)
[2021-06-06] MEDS ORDERED: ATORVASTATIN 40 MG TABLET PO SCH (09:00)
[2021-06-06 09:39] VITALS: BP_SYST 119; BP_SYST 125; BP_DIAS 63
== END 2021-06-06 12:12 | disposition left against medical advice (07) | DRG 312 ==
LOC: ED 19:47 → EDIP 22:46 → 5SO 23:07
PROVIDERS: ADMIT Internal Medicine; ATTEND Hospitalist
DX: R55 Syncope and collapse (principal); N18.6 End stage renal disease; E87.1 Hypo-osmolality and hyponatremia; I13.2 Hypertensive heart and chronic kidney disease with heart failure and with stage 5 chronic kidney disease, or end stage renal disease; I50.9 Heart failure, unspecified; E11.22 Type 2 diabetes mellitus with diabetic chronic kidney disease; I25.10 Atherosclerotic heart disease of native coronary artery without angina pectoris; I25.2 Old myocardial infarction; E78.5 Hyperlipidemia, unspecified; I44.0 Atrioventricular block, first degree; F17.210 Nicotine dependence, cigarettes, uncomplicated; Z53.29 Procedure and treatment not carried out because of patient's decision for other reasons; D64.9 Anemia, unspecified; Z99.2 Dependence on renal dialysis; Z95.5 Presence of coronary angioplasty implant and graft; Z85.828 Personal history of other malignant neoplasm of skin; Z82.49 Family history of ischemic heart disease and other diseases of the circulatory system
CPT/HCPCS: 36415; 71045; 80048; 80053; 83735; 83880; 84484; 85025; 93005; 93306; 93356; 93880; 99285; G0378

== ENCOUNTER 2021-06-22 09:38 | Emergency (ER) | payer MEDICARE, MEDICAID ==
[~2021-06-22] VITALS: Ht 177.8 cm; Wt 76.0 kg
--- NOTE | 2021-06-22 10:09 | NUR ---
sheet hanger note: Pt to room from lobby.
--- NOTE | 2021-06-22 10:26 | NUR ---
ERP AT BS. PT STATES HE STARTED FEELING DIZZY RECENTLY AND STATES HIS PCP IS CONCERNED HE COULD HAVE PLAQUE BUILDUP IN HIS HEART. Addendum: 06/22/21 at 1125 by DELPHINE PT CURRENTLY ON DIALYSIS, HAS PERMACATH TO R UPPER CHEST.
[2021-06-22 10:54] VITALS: BP 128/59
--- NOTE | 2021-06-22 11:10 | NUR ---
D/C INSTRUCTIONS & F/U APPT RV'WD WITH PT, HE VERBALIZES UNDERSTANDING. PT REPORTS HE FEELS A LITTLE LIGHTHEADED WHEN HE STANDS UP; ERP NOTIFIED, OKAY WITH DISCHARGING PT NOW. OFFERED PT A BUS PASS OR CAB VOUCHER HOME BUT HE REFUSED, STATES HE FEELS FINE AND WILL WALK A FEW BLOCKS HOME. AMBULATED OUT OF ED WITHOUT DIFFICULTY.
== END 2021-06-22 11:24 | disposition home or self-care (01) ==
LOC: ED 10:08
DX: N18.4 Chronic kidney disease, stage 4 (severe) (principal); R42 Dizziness and giddiness; R94.31 Abnormal electrocardiogram [ECG] [EKG]
CPT/HCPCS: 93005; 99283